=== PATIENT | female | born 1980 | race Caucasian/White ===

== ENCOUNTER 2020-07-26 17:08 | Emergency (ER) | payer OTHER ==
[2020-07-26] MEDS ORDERED: XYLOCAINE VISC100 ML EXT (20:13)
== END 2020-07-26 21:00 | disposition home or self-care (01) ==
LOC: ER1 17:08
DX: K02.9 Dental caries, unspecified (principal); Z87.891 Personal history of nicotine dependence
CPT/HCPCS: 96372; 99282; J1885

== ENCOUNTER → 2020-12-22 | Outpatient (CLI) | payer OTHER ==
[~2020-12-22] MED LIST: XYLOCAINE VISC100 ML EXT
== END ==
LOC: RAD 11:56
DX: R05 Cough (principal)
CPT/HCPCS: 71046